=== PATIENT | male | born 1980 | race African-American/Black ===

== ENCOUNTER 2022-01-27 03:40 | Emergency (ER) | payer MEDICAID ==
[~2022-01-27] VITALS: Ht 180.3 cm; Wt 77.1 kg
[~2022-01-27 03:40] MED LIST: PHEN100C4 PO
--- NOTE | 2022-01-27 03:42 | NUR ---
Dr. Zaldivar examining patient.
[2022-01-27 03:44] VITALS: BP 125/77
--- NOTE | 2022-01-27 03:46 | NUR ---
PT REI MANUEL. TAKEN TO BED 11
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
--- NOTE | 2022-01-27 04:01 | NUR ---
PATIENT STATED HE TOOK SEIZURE MEDICATIONS TODAY (DEPAKOTE, KEPPRA) AND PREFERS TO NOT HAVE AN IV FOR MEDICAL ROUTE, IF POSSIBLE. PATIENT AOX4 AND NOW SLEEPING IN BED.
[2022-01-27] MEDS ORDERED: IBUPROFEN 600 MG TAB PO ONE (04:20)
[2022-01-27] MEDS ORDERED: NAPR-54 PO (04:56)
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
--- NOTE | 2022-01-27 05:26 | NUR ---
DR. DILLARD SPEAKING WITH PATIENT
--- NOTE | 2022-01-27 05:30 | NUR ---
[place] [employer] AT BEDSIDE
--- NOTE | 2022-01-27 05:32 | NUR ---
[facility] POLICE DEPARTMENT PRESENT ATTEMTING TO ESCORT PATIENT OUT OF HOSPITAL.
--- NOTE | 2022-01-27 05:52 | NUR ---
PATIENT ESCORTED OUT OF HOSPITAL BY WILY ERWIN.
[2022-01-27 05:53] VITALS: BP 122/26
== END 2022-01-27 05:05 | disposition home or self-care (01) ==
LOC: MED 03:40
DX: S80.02XA Contusion of left knee, initial encounter (principal); S50.11XA Contusion of right forearm, initial encounter; X58.XXXA Exposure to other specified factors, initial encounter; Y93.89 Activity, other specified; Y92.89 Other specified places as the place of occurrence of the external cause; Y99.8 Other external cause status
CPT/HCPCS: 73090; 73562; 99284; Q0092